=== PATIENT | female | born 1990 | race Caucasian/White ===

== ENCOUNTER 2023-08-23 06:50 | Inpatient (IN) | payer OTHER, SELFPAY ==
--- NOTE | 2023-08-22 17:22 | PCM.HP.OB ---
HPI - General General Date of Admission: 08/23/23 HPI Narrative Magalie Cuenca, is a 32 F @ 39. 1 weeks who presents for elective Primary cs due to LGA Labs Labs Labs: No Data to Display Assessment & Plan (1) LGA (large for gestational age) fetus: (2) Obesity affecting : (3) 39 weeks gestation of : (4) Anemia affecting : PLAN: Plan @ 39.1 weeks- LGA fetus (>99%) scheduled for primary cs 1) pt was counseled by Dr. Chapa for primary CS due to LGA- scheduled with DM for surgery. 2) ancef 2 grams pre op 3) standard pre op orders.
[2023-08-23] VITALS (16 sets, daily range): BP systolic 98–155; BP diastolic 49–79; PULSE 55–90; RESP 14–18; TEMP 36.1–36.8; O2SAT 96–98; BMI 41.4
[2023-08-23 07:45] LABS: Absolute Neutrophil Count 7.5 X10^3/uL (2.0-7.7); Basophil# 0.04 X10^3/uL; Basophil% 0.4 % (0-1); Eosinophil# 0.07 X10^3/uL; Eosinophils% 0.6 % (0-5); Hematocrit 37.8 % (37-47); Lymphocyte % 25.8 % (19-41); Mean Corp Hgb Conc 31.7 g/dL (32-36); Mean Corpuscular Hgb 27.5 pg (27.0-32.0); Mean Corpuscular Volume 86.7 fL (81-99); Mean Platelet Vol. 10.9 fl (6.2-12.0); Monocyte# 0.67 X10^3/uL; NRBC Flagged by Analyzer 0 % (0-5); Neutrophil # 7.45 X10^3/uL (2.7-7.7); Neutrophil % 66.3 % (47-70); Platelet Count 252 K/mm3 (150-450); RBC Distribution Width CV 17.5 % (11.6-14.6); RBC Distribution Width SD 55.5 fl (35.1-43.9); Red Blood Count 4.36 M/mm3 (4.2-5.4); White Blood Count 11.2 K/mm3 (4.4-11.0)
[2023-08-23] MEDS: Acetaminophen 500 MG Tablet 1000 MG PO ×3 (07:49→21:48)
[2023-08-23] MEDS: Lactated Ringers 1,000 ML 999 ML IV (07:50)
--- NOTE | 2023-08-23 08:02 | NURSING ---
states pt father hx alcohol use - sober 12 years
[2023-08-23] MEDS: CLARIFY ORDER NOTE (08:31)
[2023-08-23] MEDS: Lactated Ringers 1,000 ML 150 ML IV (08:32)
[2023-08-23 08:42] LABS: Syphilis Antibodies Non-reactive
[2023-08-23] MEDS: Sodium Citrate/Citric Acid 30 ML UDC PO (09:11)
[2023-08-23] MEDS: Cefazolin 2 GM in 0.9% Normal Saline (100mL Bag) 100 ML IV (09:30)
--- NOTE | 2023-08-23 10:10 | EX.PCM.OBRPT ---
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 She was then placed in the supine position. She was prepped and draped in the normal sterile fashion. Anesthesia was found to be adequate. At this time a Pfannenstiel skin incision was made with a knife was carried down to the underlying layer of the fascia. The fascial incision was then extended laterally using opposing traction. attention was then turned to the superior aspect of the fascial edge was grasped with 2 straight Preethi clamps traction up and the rectus muscle dissected off bluntly. Rectus muscles were then in the midline bluntly and peritoneum was entered bluntly. Gentle opposing traction was placed. At this time the vesicouterine peritoneum was identified. Scalpel was used to make a uterine incision in a low transverse fashion. The uterus was then entered bluntly gentle opposing traction was placed to extend this incision. Membranes were ruptured clear. Infant's head was brought to the uterine incision was delivered atraumatically. Cord was clamped and cut was handed to the waiting nursery team. The Placenta was removed from the uterus. The uterus was then removed from the abdominal cavity. The uterus was cleared of all clots and debris using a lap. At this time the uterine incision was reapproximated using #1 Vicryl in a running locked fashion. Hemostasis was appreciated. Posterior cul-de-sac was then cleared of all clots and debris. Uterus was placed back in the abdominal cavity. Gutters were cleared of all clots and debris. Uterine incision was reevaluated and noted to be of excellent hemostasis. Hesham placed. At this time the peritoneum was grasped with Kellys reapproximated using #2 Vicryl suture in a running fashion. Hesham placed over rectus muscle. Fascia was then reapproximated using #1 PDS in a running fashion. Subcu layer was irrigated and then bovied for any oozing- hesham placed and then reapproximated with #2 0 plain gut suture in an interrupted fashion. Subcu layer was closed using 4-0 Monocryl in a subcu fashion. Dry sterile dressing was applied. Instrument lap needle count correct ?2. Anticipated normal postoperative course. Presentation: Positive for Vertex Amniotic Membrane Rupture Type: Artificial Amniotic Fluid Description: Clear Placental Delivery Description: Manual Removal Placenta Disposition: [facility] Cord Vessel Description: 3 Vessels Cord Entanglement: None A Gender: Female (1 minute): 7 (5 minute): 8 Delayed Cord Clamping: Yes Complications Risks of Surgery Discussed w/Patient: Bleeding, Anesthesia Risks, Infection and Injury to surrounding structure(s) including bowel and bladder Complications: none
[2023-08-23] MEDS: Oxytocin 15 Units/NS 250ml 15 UNITS/250 ML IV.SOLN 83 UNITS IV (10:43)
[2023-08-23] MEDS: Ketorolac 30 MG/ML Syringe IV ×3 (10:52→23:36)
[2023-08-23] MEDS: 0.9% Saline Lock 10 ML Syringe IV ×3 (10:53→23:37)
[2023-08-23] MEDS: Lactated Ringers 1,000 ML 100 ML IV (13:47)
[2023-08-23] MEDS: Enoxaparin 40 MG/0.4 ML Syringe SC (21:48)
[2023-08-24 03:39] VITALS: BP 109/54; PULSE 74; RESP 16; TEMP 36.2; O2SAT 97
[2023-08-24] MEDS: Acetaminophen 500 MG Tablet 1000 MG PO ×4 (03:41→21:58)
[2023-08-24] MEDS: Ketorolac 30 MG/ML Syringe IV (05:28)
[2023-08-24] MEDS: 0.9% Saline Lock 10 ML Syringe IV (05:28)
[2023-08-24 05:45] LABS: Hematocrit 30.8 % (37-47); Hemoglobin 9.6 g/dL (12.0-15.0); Mean Corp Hgb Conc 31.2 g/dL (32-36); Mean Corpuscular Hgb 27.7 pg (27.0-32.0); Mean Corpuscular Volume 88.8 fL (81-99); Mean Platelet Vol. 10.7 fl (6.2-12.0); Platelet Count 201 K/mm3 (150-450); RBC Distribution Width CV 17.9 % (11.6-14.6); Red Blood Count 3.47 M/mm3 (4.2-5.4); White Blood Count 11.2 K/mm3 (4.4-11.0)
[2023-08-24 07:00] VITALS: BP 121/63; PULSE 69; RESP 16; TEMP 36.1; O2SAT 97
--- NOTE | 2023-08-24 08:08 | PCM.PN.OB ---
Subjective Subjective Patient is doing well this morning and offers no complaints. Pain has been well controlled. She is ambulating and voiding without difficulty. Passing flatus. Tolerating regular diet without nausea or vomiting. Lochia has been normal. She denies chest pain, shortness of breath, lightheadedness, dizziness, leg pain. Objective Data Objective Data Vital Signs: Vital Signs Temp Pulse Resp BP Pulse Ox O2 Del Method 97.2 F L 74 16 109/54 L 97 Room Air 08/24/23 03:39 08/24/23 03:39 08/24/23 03:39 08/24/23 03:39 08/24/23 03:39 08/24/23 03:39 Oxygen Delivery Method Room Air Weight: 249 lb 1.957 oz Body Mass Index (BMI) 41.4 Intake & Output: Intake and Output for Last 24 Hours 08/22/23 08/23/23 08/24/23 23:59 23:59 23:59 Intake Total 2350.95 / 2350.95 Output Total 2100 / 2100 500 / 500 Balance 250.95 / 250.95 -500 / -500 Lab / Micro Data 08/24/23 05:35 Labs: Laboratory Results - last 24 hr 08/23/23 07:30: Syphilis Total Ab Non-reactive, Blood Type B POSITIVE, Antibody Screen NEGATIVE 08/24/23 05:35: WBC 11.2 H, RBC 3.47 L, Hgb 9.6 L, Hct 30.8 L, MCV 88.8, MCH 27.7, MCHC 31.2 L, RDW Std Deviation 57.0 H, RDW Coeff of Margot 17.9 H, Plt Count 201, MPV 10.7 Physical Exam Const alert and no apparent distress General Appearance: comfortable Resp normal respiratory effort GI soft to palpation and non-distended GI Narrative: ATTP, dressing c/d/i, non acute Extremity no calf tenderness Assessment & Plan (1) Delivery by section: PLAN: Is postop day 1 from a section. is in special care nursery. She is doing well. Anticipate discharge tomorrow. (2) Acute blood loss anemia: PLAN: Hemodynamically stable and no symptoms of anemia. Past oral iron on discharge.
[2023-08-24 08:42] VITALS: PULSE 69
[2023-08-24] MEDS: Enoxaparin 40 MG/0.4 ML Syringe SC ×2 (11:08→21:57)
[2023-08-24] MEDS: Senna/Docusate Sodium 1 Tablet PO (11:09)
--- NOTE | 2023-08-24 12:04 | NURSING ---
student charting reviewed
[2023-08-24] MEDS: Ibuprofen 600 MG Tablet PO ×2 (12:14→18:10)
[2023-08-24 13:50] VITALS: BP 131/71; PULSE 81; RESP 16; TEMP 36.3; O2SAT 98
--- NOTE | 2023-08-24 16:03 | CASEMGMT ---
Social Work Assessment Labor and Delivery Unit Patient Address: [address] [place] [address] [place] [address] Phone number: [phone] Date of Referral: 08/23/23 Time of Referral:?[id number] Referred By: Melida Grace Date of Intervention: 08/24/23?? Time of Intervention:? 1530 Reason for Referral:? family history of alcoholism Sw completed chart review and acknowledges social work consult. Sw presented to bedside and introduced self to mother of baby (MOB- Magalie) and father of baby (FOB- Jigar). Sw explained reason for sw involvement, completed psychosocial assessment and assessed for any needs or concerns at this time. History obtained from: medical records, MOB and FOB. ? Household composition: Currently residing in the home is MOB, MOOSE and now baby girl when she is ready for discharge. Patient's parent/guardian status:Parents state that they met [employer] dating and have been together for 5 years, they are . This is first baby for both parents. No issues or concerns regarding domestic violence or intimate partner violence. Medical History: ?MOB is 1, para 0- now 1 following the delivery of . MOB delivered baby via primary due to LGA. MOB received routine care during with [facility]. Baby girl, named Nichole Hicks, was born on 08/23/23 weighing 10lb 9oz and her apgars were 7 and 9 at one and five minutes of life respectfully. MOB states that she is and working on providing breast milk. Baby required admission to [facility] due to respiratory distress requiring CPAP and hypoglycemia. MOB states that if baby continues to make improvements her earliest day for discharge will be Sunday. Educational Status:? FOB completed the 11th grade, MOB completed high school Financial Status: Both parents are gainfully employed outside of the home. MOB works for [employer] and FOB works for [employer]. Both parents are able to take time off of work. Infant Supplies:??Parents state that they have obtained all necessary baby items including: Clothes, diapers, wipes, safe sleep space, car seat Childcare/Caregiver(s):? Parents state that when they have both returned to work they have family that will be able to provide care to baby. While MOB is on maternity leave she will be the primary caregiver, along with FOB when he is not at work. Transportation:??Both parents have their drivers license and reliable means of transportation. No transportation barriers at this time. Programs/Agencies Involved: ??Parents deny any linkage to community resources? Children Services/Legal Issues:??? No former involvement, no issues or concerns warranting a referral at this time. Behavioral Health Issues: ??Mental Health History: Both parents deny history of mental health diagnoses. ??? Substance Use History:??MOB denies substance use history prior to and during . Family History: MARISOL states that her father was an alcoholic, but has been sober for 12 years. ? Drug Screens: No urine screens observed in chart review. Family/Social Stressors:? no stressors or concerns expressed at this time. Support Systems: Both parents state they have family members who are supportive and who would help them should any needs present themselves. Depression/Shaken Baby/Safe Sleeping:? Sw provided education and literature on signs and symptoms of baby blues and depression. Parents expressed understanding and asked appropriate questions. Sw educated parents on shaken baby prevention and ABCs of safe sleep. Parents expressed understanding. ASSESSMENT:? MOB is admitted following delivery of . MOB is recovering well and states that she has everything she needs for baby. MOB and FOB are good supports for one another and state they have lots of family who are also supportive. Parents asked appropriate questions regarding safe sleep and / baby blues. Parents were talkative and open and receptive to sw involvement and support. Parents have been going to [facility] regularly to be active in hands on care of baby while she requires [facility] admission. PLAN:?MOB and baby to be discharged when medically ready. ?No other services requested or indicated. Braden Gibbs, CALCULATING MACHINE OPERATOR, BILINGUAL CASE MANAGER
[2023-08-24 21:00] VITALS: BP 158/80; PULSE 88; RESP 15; TEMP 36.3; O2SAT 97
[2023-08-25] MEDS: Ibuprofen 600 MG Tablet PO ×3 (00:41→14:12)
[2023-08-25 02:00] VITALS: BP 147/82; PULSE 74; RESP 15; TEMP 36.3; O2SAT 99
[2023-08-25] MEDS: Acetaminophen 500 MG Tablet 1000 MG PO ×2 (03:49→11:04)
[2023-08-25 09:14] VITALS: BP 128/74; PULSE 75; RESP 16; TEMP 36.6
--- NOTE | 2023-08-25 09:28 | PCM.PN.OB ---
Subjective Subjective Pain well controlled. Average lochia. Denies any chest pain, shortness of breath, lightheadedness or dizziness. No headache or visual changes. Passing gas, no bowel movement yet. Tolerating regular diet. Objective Data Objective Data Vital Signs: Vital Signs Temp Pulse Resp BP Pulse Ox O2 Del Method 98 F 75 16 128/74 H 99 Room Air 08/25/23 09:14 08/25/23 09:14 08/25/23 09:14 08/25/23 09:14 08/25/23 02:00 08/25/23 09:14 Oxygen Delivery Method Room Air Weight: 113 kg Body Mass Index (BMI) 41.4 Intake & Output: Intake and Output for Last 24 Hours 08/23/23 08/24/23 08/25/23 23:59 23:59 23:59 Intake Total 2350.95 / 2350.95 Output Total 2100 / 2100 950 / 950 Balance 250.95 / 250.95 -950 / -950 Lab / Micro Data 08/24/23 05:35 Physical Exam Const alert General Appearance: cooperative GI GI Narrative: soft, moderate distention, fundus firm, appropriately tender. Abdominal bandage clean dry and intact Assessment & Plan (1) delivery delivered: PLAN: Acute blood loss anemia. Calculated blood loss during surgery and postoperatively is 1300 cc. This consistent with hemorrhage. Patient is tolerating anemia well. Will send home on oral iron. is in the special care nursery and doing well. Anticipate discharge home for both of them tomorrow. Continue routine postoperative care
[2023-08-25] MEDS: Influenza Virus Vac Quad 23-24 60 MCG/0.5 ML SYRINGE IM (12:33)
[2023-08-25] MEDS: Enoxaparin 40 MG/0.4 ML Syringe SC (12:33)
--- NOTE | 2023-08-25 13:09 | PCM.DC ---
Discharge Instructions Diet Discharge Diet: No restrictions Activity May resume sexual activity in: 4-6 weeks Lifting Restrictions: 20 pounds Additional Activity Instructions:: Nothing in the vagina for 4-6 weeks. You may return to work/school in 6 weeks. Dressing / Incision Call your doctor if your incision/area has: Continuous Slow Oozing, Sudden Increased Bleeding, Increased Pain/ Swelling, Increased Redness and Foul Smelling Discharge Call your doctor if you observe: Fever of 101 or Higher and Using more than 1 pad per hour (for 2 hours) Suture Line Care: Avoid Pulling/Pushing and Avoid Pinching/Bending Cleanse incision/area with: Keep Dressing Clean & Dry Follow Up Care Please Follow Up With: Fallon Zamora MD When: Call to make an appointment for an incision check in 3-5 days or as needed. Call the office ha-[phone] or send a [employer] message. You will need a post check in 6 weeks. Test Results: Test results from this visit will be discussed in further detail at your follow-up appointment, if applicable. Discharge Plan Admission Admit Date/Time: 08/23/23 06:50 Primary Reason for Your Visit: delivery Attending Provider: Melida Villagran Primary Care Provider: Radha Limon Discharge Orders/Prescriptions Prescriptions: New ibuprofen [ibuprofen] 600 mg tablet 600 mg PO Q6H PRN (Reason: Pain) 20 Days Qty: 60 1RF Continued [id number] 1 mg tablet PO DAILY famotidine [Pepcid] 20 mg tablet 20 mg PO DAILY Discontinued aspirin [Adult Aspirin Regimen] 81 mg tablet,delayed release (DR/EC) 81 mg PO DAILY Referrals / Follow Up: Radha Limon MD [Primary Care Provider] -
--- NOTE | 2023-08-25 13:10 | DS.PCM_ITS ---
Providers Date of Admission: 08/23/23 Date of Discharge: 08/25/23 Primary Care Physician: Dr. Radha Limon MD Reason For Visit: PRIMARY Diagnosis Discharge Diagnosis (1) delivery delivered: Status: Acute Code(s): O82 - Encounter for delivery without indication Plan: Acute blood loss anemia. Calculated blood loss during surgery and postoperatively is 1300 cc. This consistent with hemorrhage. Patient is tolerating anemia well. Will send home on oral iron. is in the special care nursery and doing well. Anticipate discharge home for both of them tomorrow. Continue routine postoperative care Medications at Discharge Home Medications famotidine 20 mg tablet (Pepcid) 20 mg PO DAILY indigestion 08/23/23 [id number]-[id number] 1 mg tablet tab PO DAILY 08/23/23 ferrous gluconate 324 mg (37.5 mg iron) tablet 324 mg PO QODAY 30 days #15 tabs 08/25/23 ibuprofen 600 mg tablet 600 mg PO Q6H PRN Pain 20 days #60 TABLETS 08/25/23 Hospital Course Operations - (Primary LTCS on 08/23/23) Procedures None Summary of Care Provided Minutes Spent on Discharge: 16 Hospital Course: Patient was a high risk [place] parous patient admitted on 08/23/2023 at 39 weeks with a known large for gestational age fetus. She had an unfavorable cervix. She clinically had a small pelvis. Patient elected for primary section. This was performed without difficulty. Her postoperative course was unremarkable and put postoperative day #2 she was ambulating, tolerating regular diet and desired discharge home with routine instructions and follow-up. She had moderate postoperative blood loss anemia superimposed on antepartum anemia. She was tolerating this well and was sent home on iron. EBL for surgery is calculated be 1300 cc. Weight / BMI Weight Weight: 113 kg Body Mass Index (BMI) 41.4 ABG / Lab / Microbiology Data 08/24/23 05:35 D/C Instructions Discharge Diet: No restrictions May resume sexual activity in: 4-6 weeks Additional Activity Instructions: Nothing in the vagina for 4-6 weeks. You may return to work/school in 6 weeks. Call your doctor if your incision/area has: Continuous Slow Oozing, Sudden Increased Bleeding, Increased Pain/ Swelling, Increased Redness and Foul Smelling Discharge Call your doctor if you observe: Fever of 101 or Higher and Using more than 1 pad per hour (for 2 hours) Suture Line Care: Avoid Pulling/Pushing and Avoid Pinching/Bending Cleanse incision/area with: Keep Dressing Clean & Dry Please Follow Up With: Fallon Zamora MD When: Call to make an appointment for an incision check in 3-5 days or as needed. Call the office pl-[phone] or send a [employer] message. You will need a post check in 6 weeks. Meaningful Use Info Meaningful Use Diagnoses (Choose all that apply): None applicable Discharge Plan Admission Admit Date/Time: 08/23/23 06:50 Primary Reason for Your Visit: delivery Attending Provider: Melida Villagran Primary Care Provider: Radha Limon Discharge Orders/Prescriptions Prescriptions: New ibuprofen [ibuprofen] 600 mg tablet 600 mg PO Q6H PRN (Reason: Pain) 20 Days Qty: 60 1RF ferrous gluconate 324 mg (37.5 mg iron) tablet 324 mg PO QODAY 30 Days Qty: 15 0RF Continued [id number]-[id number]-[id number]-FA 1 mg tablet PO DAILY famotidine [Pepcid] 20 mg tablet 20 mg PO DAILY Discontinued aspirin [Adult Aspirin Regimen] 81 mg tablet,delayed release (/EC) 81 mg PO DAILY Referrals / Follow Up: Radha Limon MD [Primary Care Provider] - Disposition Discharge Orders: Discharge Patient (Routine); Ordered 08/25/23 Ordered By: Dr. Fallon Zamora
[2023-08-25 14:30] VITALS: BP 141/84; PULSE 82; RESP 16; TEMP 36.6; O2SAT 99
== END 2023-08-25 14:50 | disposition home or self-care (01) | DRG 787 ==
PROVIDERS: Admitting Provider Obstetrics & Gynecology; PCP Family Medicine; Referring Provider Obstetrics & Gynecology; Visit Provider Obstetrics & Gynecology
PROC: 10D00Z1 Extraction of Products of Conception, Low, Open Approach (ICD-10-PCS; CPT 59514; principal; 2023-08-23 07:15)
DX: O36.63X0 Maternal care for excessive fetal growth, third trimester, not applicable or unspecified (principal); O72.1 Other immediate postpartum hemorrhage; D64.9 Anemia, unspecified; O99.214 Obesity complicating childbirth; O99.02 Anemia complicating childbirth; Z37.0 Single live birth; Z3A.39 39 weeks gestation of pregnancy
CPT/HCPCS: 59050; 85025; 85027; 86780; 86850; 86900; 86901; 99221; J7120; 90686; A4216; G0378